=== PATIENT | female | born 1965 | race Caucasian/White ===

== ENCOUNTER 2018-08-18 18:55 | Emergency (ER) | payer OTHER ==
[2018-08-18] MEDS ORDERED: IPRATROPIUM/ALBUTEROL 0.5-2.5 MG/3 ML AMPUL NEB ONE (19:20)
--- NOTE | 2018-08-18 19:21 | ER Document Report ---
ED Medical Screen (RME) - General Chief Complaint: Breathing Difficulty Stated Complaint: SHORTNESS OF BREATH Time Seen by Provider: 08/18/18 19:17 Mode of Arrival: Ambulatory Information source: Patient Notes: Patient presents with cough for the past week. Patient states she has become short of breath with her symptoms and is wanting an x-ray performed. Patient complains of some discomfort to the midsternal area but denies pain in this location. Patient without any fever. Patient denies any significant medical history. Patient was seen at an urgent care earlier this week and placed on Tessalon Perles prednisone as well as an inhaler. I have greeted and performed a rapid initial assessment of this patient. A comprehensive ED assessment and evaluation of the patient, analysis of test results and completion of the medical decision making process will be conducted by additional ED providers. TRAVEL OUTSIDE OF THE [place] IN LAST 30 DAYS: No Past Medical History - Social History Chew tobacco use (# tins/day): No Drug Abuse: None Renal/ Medical History: Denies: Hx Peritoneal Dialysis Physical Exam - Vital signs Vitals: Temp Pulse Resp BP Pulse Ox 98.3 F 70 18 157/90 H 95 08/18/18 19:07 08/18/18 19:07 08/18/18 19:07 08/18/18 19:07 08/18/18 19:07 - Respiratory Breath sounds: Nonproductive cough, Rhonchi, Wheezing Course - Vital Signs Vital signs: Temp Pulse Resp BP Pulse Ox 98.3 F 70 18 157/90 H 95 08/18/18 19:07 08/18/18 19:07 08/18/18 19:07 08/18/18 19:07 08/18/18 19:07
--- NOTE | 2018-08-18 19:47 | RADIOLOGY REPORT (SQ) ---
EXAM DESCRIPTION: CHEST 2 VIEWS COMPLETED DATE/TIME: 08/18/2018 7:30 pm REASON FOR STUDY: cough, sob COMPARISON: None. EXAM PARAMETERS: NUMBER OF VIEWS: two views TECHNIQUE: Digital Frontal and Lateral radiographic views of the chest acquired. RADIATION DOSE: NA LIMITATIONS: none FINDINGS: LUNGS AND PLEURA: No opacities, masses or pneumothorax. No pleural effusion. MEDIASTINUM AND HILAR STRUCTURES: No masses or contour abnormalities. HEART AND VASCULAR STRUCTURES: Heart normal size. No evidence for failure. BONES: No acute findings. HARDWARE: None in the chest. OTHER: No other significant finding. IMPRESSION: NO ACUTE RADIOGRAPHIC FINDING IN THE CHEST. TECHNICAL DOCUMENTATION: JOB ID: [id number] [place]-72 2010 [employer]- All Rights Reserved Reading location - IP/workstation name: [email or web address]
[2018-08-18 20:54] LABS: ABSOLUTE LYMPHOCYTES (AUTO) 1.6 10^3/uL (0.5-4.7); ABSOLUTE MONOCYTES (AUTO) 0.6 10^3/uL (0.1-1.4); BASOPHILS % (AUTO) 0.3 % (0-2); HEMATOCRIT 39.7 % (36.0-47.0); HEMOGLOBIN 13.4 g/dL (12.0-15.5); MEAN CORPUSCULAR HEMOGLOBIN 29.9 pg (27.0-33.4); MEAN CORPUSCULAR HGB CONC 33.7 g/dL (32.0-36.0); MEAN CORPUSCULAR VOLUME 89 fl (80-97); MONOCYTES % (AUTO) 6.8 % (3-13); PLATELET COUNT 334 10^3/uL (150-450); RED BLOOD COUNT 4.48 10^6/uL (3.72-5.28); RED CELL DISTRIBUTION WIDTH 13.7 % (11.5-14.0); SEGMENTED NEUTROPHILS % (AUTO) 72.9 % (42-78); TOTAL CELLS COUNTED % (AUTO) 100 %; WHITE BLOOD COUNT 8.2 10^3/uL (4.0-10.5)
[2018-08-18 21:10] LABS: ALANINE AMINOTRANSFERASE 25 U/L (9-52); ALBUMIN 4.4 g/dL (3.5-5.0); ALKALINE PHOSPHATASE 74 U/L (38-126); ANION GAP 10 (5-19); ASPARTATE AMINO TRANSFERASE 17 U/L (14-36); BILIRUBIN,DIRECT 0.3 mg/dL (0.0-0.4); BILIRUBIN,TOTAL 0.3 mg/dL (0.2-1.3); BLOOD UREA NITROGEN 19 mg/dL (7-20); CALCIUM 9.8 mg/dL (8.4-10.2); CARBON DIOXIDE 26 mmol/L (22-30); CHLORIDE 106 mmol/L (98-107); GLUCOSE 103 mg/dL (75-110); POTASSIUM 4.4 mmol/L (3.6-5.0); SODIUM 141.7 mmol/L (137-145); TOTAL PROTEIN 7.6 g/dL (6.3-8.2)
--- NOTE | 2018-08-18 22:29 | ER Document Report ---
ED General - General Chief Complaint: Breathing Difficulty Stated Complaint: SHORTNESS OF BREATH Time Seen by Provider: 08/18/18 19:17 Mode of Arrival: Ambulatory Notes: Patient is a 52-year-old female presents with complaint of upper respiratory and bronchitis type symptoms. She has had approximately a week of runny nose cough congestion. She says she has had a lot of postnasal drip. No fevers. No vomiting. She went to urgent care a few days ago and was placed on prednisone albuterol inhaler. Said her symptoms have not improved a whole lot. She is also placed on a Z-Dewey. She is concerned that she could have pneumonia and therefore came to the ER. No chest pain. No leg pain or leg swelling. 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 No other complaints at this time. No history of asthma but patient says in the past she is been very prone to getting bronchitis. TRAVEL OUTSIDE OF THE [place] IN LAST 30 DAYS: No Past Medical History - General Information source: Patient - Social History Smoking Status: Never Smoker Chew tobacco use (# tins/day): No Frequency of alcohol use: None Drug Abuse: None Family History: Reviewed & Not Pertinent Patient has suicidal ideation: No Patient has homicidal ideation: No Renal/ Medical History: Denies: Hx Peritoneal Dialysis Past Surgical History: Comment Only: Hx Gynecologic Surgery - uterine ablasion Review of Systems - Review of Systems Notes: My Normal Review Basic REVIEW OF SYSTEMS: CONSTITUTIONAL : Denies fever, chills, or sweats. Denies recent illness. EENT: Nasal congestion and postnasal drip RESPIRATORY: Cough and wheezing GASTROINTESTINAL: Denies abdominal pain. Denies nausea, vomiting, or diarrhea. MUSCULOSKELETAL: Denies neck or back pain or joint pain or swelling. SKIN: Denies rash or skin lesions. NEUROLOGICAL: Denies altered mental status or loss of consciousness. Denies headache. Denies weakness or paralysis or loss of use of either side. Denies problems with gait or speech. Denies sensory or motor loss. ALL OTHER SYSTEMS REVIEWED AND NEGATIVE. Physical Exam - Vital signs Vitals: Temp Pulse Resp BP Pulse Ox 98.3 F 70 18 157/90 H 95 08/18/18 19:07 08/18/18 19:07 08/18/18 19:07 08/18/18 19:07 08/18/18 19:07 - Notes Notes: General Appearance: Well nourished, alert, cooperative, no acute distress, no obvious discomfort. Well-appearing. Occasional dry cough during exam. Vitals: reviewed, See vital signs table. Head: no swelling or tenderness to the head Eyes: PERRL, EOMI, Conjuctiva clear Mouth: No decreasd moisture Throat: No tonsillar inflammation, No airway obstruction, No lymphadenopathy Neck: Supple, no neck tenderness, No thyromegaly Lungs: No wheezing, No rales, No rhonci, No accessory muscle use, good air exchange bilaterally. Note: My exam is after patient received a DuoNeb treatment from triage. Heart: Normal rate, Regular rythm, No murmur, no rub Extremities: no edema. Skin: warm, dry, appropriate color, no rash Neuro: speech clear, oriented x 3, normal affect, responds appropriately to questions. Course - Re-evaluation Re-evalutation: 08/18/18 22:45 Patient appears to have a upper restaurant infection with associated bronchitis. Triage note in the mid-level note says that she did have wheezing in triage. Now that she is received no treatment her wheezing is gone. She looks well. She does have recurrent dry cough but has no increased work of breathing and no tachypnea no hypoxemia. She does have postnasal drip. She says she also feels that this is triggering her cough. Informed her that a decongestant would probably be of some help. Her blood pressure is little low when she arrived here however the patient says that 2 weeks ago she was at her primary care doctor's office and her blood pressure was normal. Informed her that she can take an [id number] nasal congestion but only take it twice a day. I encouraged her to follow-up closely with her primary care doctor this coming week. Encouraged to return to ER immediately if she has chest pain, difficulty breathing, wheezing not responding to inhaler, fevers, or if she feels she is worsening in any way. Patient agrees with plan will be discharged home. Dictation of this chart was performed using voice recognition software; therefore, there may be some unintended grammatical errors. - Vital Signs Vital signs: Temp Pulse Resp BP Pulse Ox 98.3 F 70 18 157/90 H 95 08/18/18 19:07 08/18/18 19:07 08/18/18 19:07 08/18/18 19:07 08/18/18 19:07 - Laboratory Result Diagrams: 08/18/18 20:32 08/18/18 20:32 - EKG Interpretation by Me Additional EKG results interpreted by me: 08/18/18 22:29 EKG is reviewed and interpreted by me. EKG shows sinus rhythm rate [address] segment elevation or depression. No ischemic T wave inversions. NV interval, QRS duration, QT intervals are within normal range. No old EKG available for comparison. Discharge - Discharge Clinical Impression: Acute bronchitis Qualifiers: Bronchitis organism: unspecified organism Qualified Code(s): J20.9 - Acute b ronchitis, unspecified Condition: Good Disposition: HOME, SELF-CARE Additional Instructions: Based on your history and symptoms I suspect that you have bronchitis. Bronchitis is typically related to a viral illness. Your chest x-ray did not show evidence of pneumonia and therefore there is no reason to add any further a ntibiotics at this time. I would continue the prednisone as prescribed by the urgent care. Continue to use inhaler as needed for wheezing. You can add a over the counter decongestants as found on his friend or Sudafed. Please take no more than twice a day as your blood pressure was little bit high when he arrived here which likely is related to being sick. Please follow-up with your doctor this coming week. Please return to ER immediately if you have chest pain, difficulty breathing, wheezing, fevers, or if you feel that you are worsening in any way. Forms: Return to Work
[2018-08-18 23:04] VITALS: BP 136/73
--- NOTE | 2018-08-19 12:10 | EKG REPORT ---
SEVERITY:- ABNORMAL ECG - SINUS RHYTHM PROBABLE LEFT VENTRICULAR HYPERTROPHY : Confirmed by: Jana Johnston MD 19-Aug-2018 12:09:42
== END 2018-08-18 23:00 | disposition home or self-care (01) ==
LOC: ER 18:55 → EDSEX 18:55 → ER 23:00
DX: J20.9 Acute bronchitis, unspecified (principal); R09.89 Other specified symptoms and signs involving the circulatory and respiratory systems; R05 Cough; R09.82 Postnasal drip; R06.2 Wheezing; R09.81 Nasal congestion
CPT/HCPCS: 93005; 94640; 99284; 36415; 85025; 80053; 84484; 83880; 71046; 93010; J7620

== ENCOUNTER 2019-02-02 07:26 | Day surgery (SDC) | payer OTHER ==
[2019-02-02] MEDS ORDERED: LIDOCAINE 2% INJ-PF (100 MG/5 ML) SYRINGE ONE (08:05)
[2019-02-02] MEDS ORDERED: PROPOFOL INJ 200 MG/20 ML VIAL IV ONE (08:05)
--- NOTE | 2019-02-02 11:34 | Operative Report ---
Operative Report DATE OF SURGERY: 02/02/19 Operative Report: The risks, benefits and alternatives of the procedure including the risk of bleeding, perforation requiring surgery have been explained to the patient in detail and informed consent has been obtained. Patient is placed on left, lateral decubital position. Timeout was called. Propofol medication is administered. Rectal examination is done which did not reveal any masses, tears or fissures. An Olympus videoscope was introduced into the patient's rectum. Scope was then carefully advanced all the way to the cecum. Cecum was identified by the usual anatomical landmarks including the ileocecal valve as well as the appendiceal office. Photodocumentation is obtained. Scope was then sequentially pulled back via the various segments of the colon including the ascending colon, hepatic flexure, transverse colon, splenic flexure, descending colon and finally into the rectosigmoid portions of the colon. Retroflexion maneuvers performed. PREOPERATIVE DIAGNOSIS: Colorectal cancer screening POSTOPERATIVE DIAGNOSIS: Right colon inflammation status post biopsy. Left colon inflammation with loss of haustra noted status post biopsy rule out colitis. Internal hemorrhoids OPERATION: Colonoscopy with biopsy SURGEON: SADE STEPHENSON ANESTHESIA: LMAC TISSUE REMOVED OR ALTERED: As noted above. COMPLICATIONS: None. ESTIMATED BLOOD LOSS: None. INTRAOPERATIVE FINDINGS: As noted above. PROCEDURE: Patient tolerated the procedure well. No immediate postprocedure complications are noted. Patient is discharged in good condition. Discharge date 02/02/2019. Discharge diet: Regular. Discharge activity: Regular. 2 to 3-week follow-up to discuss findings. Patient is instructed to call the office or proceed to the emergency room should there be any further problems or questions. Wait on the pathology.
[2019-02-02 12:07] VITALS: BP 126/61
== END 2019-02-02 09:40 | disposition home or self-care (01) ==
LOC: END 07:26
PROVIDERS: ATTEND Internal Medicine Gastroenterology
DX: Z12.11 Encounter for screening for malignant neoplasm of colon (principal); K52.9 Noninfective gastroenteritis and colitis, unspecified; K64.8 Other hemorrhoids; K62.89 Other specified diseases of anus and rectum; J45.909 Unspecified asthma, uncomplicated; Z79.51 Long term (current) use of inhaled steroids; E66.9 Obesity, unspecified; Z68.41 Body mass index [BMI] 40.0-44.9, adult
CPT/HCPCS: 45380; 88305 ×2; 00812; J2001; J2704; 812